=== PATIENT | female | born 1980 | race Caucasian/White ===

== ENCOUNTER 2024-12-15 12:06 | Outpatient (CLI) | payer BC, SELFPAY ==
--- NOTE | 2024-12-15 | BRBX_PTH ---
PATIENT: ALMAS SCHNEIDER LOC: [facility]US U#:[id number] AGE/SX: 43/F ROOM: RE12/15/[address]: Dr. José Velasquez MD : 1980 BED: DIS: 12/15/2024 SPEC #: [id number] RECD: 12/15/24 14:19 STATUS: BILL RETasia #: [id number] JUAN F: 12/15/24 00:[address]: José Velasquez DEPT: SURGICAL PATHOLOGY RECD BY: Sumit Olivo ENTERED: 12/15/24 14:29 SP TYPE: BREAST BX OTHR DR: Ijeoma Simons PA-C Tissues: A - Right breast, NOS Procedures: Surgery Specimen Level IV HEADER OPERATION: Ultrasound guided right breast biopsy PRE-OP DIAGNOSIS: Right breast TISSUE SUBMITTED: A- Right breast biopsy, 1o'clock +3 Ischemic Time: <1 minute Fixation Time: between 6 and 72 hours MICROSCOPIC DIAGNOSIS A. Right breast, 1:00, 3CMFN, core biopsy: * Benign breast parenchyma. MICROSCOPIC DESCRIPTION Slides are reviewed. GROSS DESCRIPTION A. Received in formalin in a container labeled with the patient's name, date of , and with the accompanying paperwork indicating, ultrasound-guided right breast biopsy 1:00 +3 is an abundance of red and gelatinous blood clot material measuring 2.7 x 1.9 x 1.4 cm in aggregate. The blood clot material searched, and 4 white-pink, cylindrical core biopsies of soft tissue are identified ranging from 1.0 x 0.2 cm to 1.3 x 0.3 cm. The specimen is submitted entirely as follows:A1. Core biopsies A2-3. Blood clot material [facility] 12-15-2024 CPT:02570
--- NOTE | 2024-12-15 12:10 | US_ITS ---
PROCEDURE: US BREAST BIOPSY 1ST LESION 12/15/2024 REASON FOR EXAM: F, Age 43 y/o , RIGHT BREAST MASS COMPARISON: Prior exam(s) dating back to November 24, 2024 and November 28, 2024.. TECHNIQUE: Under direct sonographic guidance, the surgeon performed core biopsies of the 10 mm x 10 mm x 3 mm hypoechoic nodule at the 1 o'clock position of the breast at 3 cm from the nipple. FINDINGS: Successful ultrasound-guided breast biopsy. US/US Breast Biopsy 1st Lesion IMPRESSION: Successful ultrasound-guided breast biopsy of the 10 mm x 10 mm x 3 mm hypoecho ic nodule at the 1 o'clock position of the breast at 3 cm from the nipple. BI-RADS 3: PROBABLY BENIGN. Reading Location: [place] [id number]
--- NOTE | 2024-12-15 12:30 | BI_ITS ---
EXAM: DIAG MAMM W/CAD, UNILAT 12/15/2024 CLINICAL HISTORY: F, Age 43 y/o , POST ULTRASOUND BX CLIP PLACEMENT TECHNIQUE: Bilateral Diagnostic digital breast tomosynthesis with 2D and 3D images. Computer aided detection. COMPARISON: Prior exam(s) dated November 28, 2024.. FINDINGS: TISSUE DENSITY: The breast tissue is extremely dense which lowers the sensitivity of mammography. A tissue clip marker is seen in the superior retroareolar region of the right breast following the biopsy. BI/DIAG MAMM W/CAD, UNILAT IMPRESSION: OVERALL FINAL ASSESSMENT: BIRADS 2 BENIGN FINDING. RECOMMENDATION: Routine annual follow-up in 1 Year A letter with findings and recommendations will be mailed to the patient. Reading Location: [place] [address]
--- NOTE | 2024-12-15 14:32 | PCM.OPRPT ---
Problems Associated Problem List Diagnoses (1) Abnormal ultrasound of breast: Procedures Integumentary [id number]: [id number] Bx breast 1st lesion us imag Operative Report (Standard) Operative Information Date of Procedure: 12/15/24 Pre-Operative Diagnosis: Abnormal right breast ultrasound Post-Operative Diagnosis: Same Surgery/Procedure Performed: Ultrasound-guided mammotome biopsy marketing financial analyst: No Type of Anesthesia: Local Procedure Start Time: 13:30 Procedure Stop Time: 13:50 Select all DRAINS/GRAFTS/IMPLANTS that apply: None Estimated Blood Loss: Minimal Specimen collected: Yes Description of specimen(s) removed: Right breast tissue Description of surgery: The patient is a 43-year-old female seen through the office with an abnormal right breast ultrasound. There is a 4 x 10 mm lesion seen under ultrasound in the right breast. The report was generated by an outside hospital. They stated that there were several lymph nodes noted along with this 4 x 10 mm lesion. It was indicated and they report that this was at the 4 o'clock position. However on our scanning the lesion in question was more at the 1 o'clock position. Our images corresponded to what we were able to treat you from the outside hospitals images. The other structures that the 4 o'clock position were actually lymph nodes. As result we recommended ultrasound-guided mammotome biopsy. This lesion was located by the industrial ecology technician. The area was then prepped and draped in the usual sterile manner. Local anesthetic was infiltrated into the area. #11 blade was then used to make a small skin incision. The mammotome device was then inserted. Multiple suction biopsies were obtained with good tissue sampling. A marking clip was deployed at the completion of the procedure. She tolerated this well. Manual pressure was held for several minutes to ensure hemostasis. Mastisol and Steri-Strips were applied as dressing along with a Tegaderm. Surgical Findings: See procedure note. Complications Complications: No Admit VTE Documentation VTE Present on Admission: No VTE Mechan Device Prophylaxis: SCD's VTE Pharm Prophylaxis ordered?: No Reason prophylaxis not ordered: Treatment Not Indicated
== END 2024-12-15 23:59 | disposition home or self-care (01) ==
LOC: OPUS 12:08
PROVIDERS: PCP Family Medicine; Referring Provider Surgery; Visit Provider Surgery
DX: D24.1 Benign neoplasm of right breast (principal)
CPT/HCPCS: 19083; 77065; 88305